=== PATIENT | male | born 1970 | race African-American/Black ===

== ENCOUNTER 2020-01-05 09:38 | Emergency (ER) | payer OTHER ==
[~2020-01-05] VITALS: Ht 172.7 cm; Wt 97.5 kg
[2020-01-05] MEDS ORDERED: NORVASC 2.5 MG2.5 M1 PO (09:52)
[2020-01-05] MEDS ORDERED: ZESTRIL5 MG PO (09:52)
[2020-01-05] MEDS ORDERED: DIAZEPAM 5 MG5 M1 PO (10:19)
[2020-01-05] MEDS ORDERED: PREDNISONE50 MG PO (10:19)
[2020-01-05] MEDS ORDERED: MOBIC15 MG PO (10:19)
[2020-01-05 10:40] VITALS: BP 147/94
== END 2020-01-05 10:42 | disposition home or self-care (01) ==
LOC: M.ERS 09:38
DX: S29.012A Strain of muscle and tendon of back wall of thorax, initial encounter (principal); X50.9XXA Other and unspecified overexertion or strenuous movements or postures, initial encounter; Y93.89 Activity, other specified; Y92.89 Other specified places as the place of occurrence of the external cause; Y99.8 Other external cause status